=== PATIENT | male | born 1990 | race Caucasian/White ===

== ENCOUNTER 2020-05-17 16:34 | Emergency (ER) | payer OTHER, SELFPAY | END 2020-05-17 16:48 | disposition left against medical advice (07) | LOC: EXPBETH 16:40 | PROVIDERS: Emergency Provider Nurse Practitioner | DX: Z53.21 Procedure and treatment not carried out due to patient leaving prior to being seen by health care provider (principal) | CPT/HCPCS: 99199 ==